=== PATIENT | female | born 1995 | race Caucasian/White ===

== ENCOUNTER 2020-06-22 08:09 | Outpatient (REF) | payer MEDICAID, SELFPAY ==
--- NOTE | 2020-06-22 08:15 | MR_ITS ---
EXAMINATION: MR BRAIN WITHOUT AND WITH CONTRAST CLINICAL INFORMATION: Pituitary adenoma follow-up. COMPARISON: Brain MRI 05/03/2019, 09/06/2018. TECHNIQUE: Multiplanar MR imaging of the brain was performed without and with contrast. A total of 5 mL Gadavist was utilized for this examination. FINDINGS: Again there is a focus of relative hypoenhancement located along the right inferolateral aspect of the pituitary gland best illustrated on coronal image 7 of 15 series 10 that measures up to 1 cm in diameter. Overall the size of this lesion has not substantial change when compared to most recent prior examination from 05/03/2019. The overall height of the intrasellar contents has remained stable and a height of 1.1 cm. The superior surface of the pituitary gland slightly bulges into the suprasellar compartment. No overt chiasmatic compression. The pituitary stalk deviates slightly to the left. No clear evidence of cavernous sinus invasion. Cavernous sinuses enhance symmetrically. Cavernous internal carotid artery flow voids are maintained. Postcontrast images of the whole brain reveal no abnormal mass or enhancement elsewhere within the intracranial compartment. No intracranial mass effect or midline shift. Lateral and third ventricles are normal. No hydrocephalus. Midline structures including the cervicomedullary junction are normal. Bone marrow signal intensity appears diffusely diminished on the sagittal T1 sequence. There is no acute territorial infarct. Or intracranial vascular flow voids are grossly maintained. There is a trace left mastoid tip effusion. Mild mucosal thickening within ethmoid air cells. Globes and orbits are symmetric. MR/MR head/brain wo/w con IMPRESSION: Stable size of a known pituitary mass most likely representing a pituitary adenoma. The height of the intrasellar contents remains stable with the superior surface of the pituitary gland slightly bulging into the suprasellar cistern. No chiasmatic compression.
== END 2020-06-22 08:10 | disposition home or self-care (01) ==
LOC: HO.MRI 08:09
PROVIDERS: PCP Family Medicine; Visit Provider Internal Medicine Endocrinology, Diabetes & Metabolism
DX: D35.2 Benign neoplasm of pituitary gland (principal)
CPT/HCPCS: 70553